=== PATIENT | female | born 2005 ===

== ENCOUNTER → 2024-08-18 | Outpatient (CLI) | payer BC ==
[2024-08-18 19:47] LABS: Protein, Urine Random 27.7 mg/dL (0.0-11.9); Protein/Creat Ratio, Ur Random 0.1
== END ==
LOC: LAB 14:15 → LAB SHORT 14:15
PROVIDERS: Obstetrics & Gynecology
DX: O14.90 Unspecified pre-eclampsia, unspecified trimester (principal)
CPT/HCPCS: 82570; 84156

== ENCOUNTER 2024-09-06 13:31 | Inpatient (IN) | payer BC ==
[2024-09-06] VITALS (11 sets, daily range): BP systolic 131–150; BP diastolic 64–89
[2024-09-06] MEDS ORDERED: Acetaminophen 500 MG Tab PO PRN (14:10)
[2024-09-06] MEDS ORDERED: Methylergonovine Maleate 0.2MG / ML 1ML Amp IM PRN ×2 (14:10→16:55)
[2024-09-06] MEDS ORDERED: ePHEDrine Sulfate 50 MG/ML 1ML Injection XX PRN (14:10)
[2024-09-06] MEDS ORDERED: Lactated Ringer's 1,000 ML IV PRN ×3 (14:10)
[2024-09-06] MEDS ORDERED: Carboprost Tromethamine 250 MCG/ML 1ML Amp IM PRN ×2 (14:10→17:00)
[2024-09-06] MEDS ORDERED: Ondansetron HCl 2 MG / ML 2ML Vial IV PRN (14:10)
[2024-09-06] MEDS ORDERED: FentaNYL 2mcg/ml-Bup 0.1% Epd 250 ML EPI PRN (14:10)
[2024-09-06] MEDS ORDERED: OXYTOCIN/RINGER'S LACTATE 500 ML IV PRN (14:10)
[2024-09-06] MEDS ORDERED: Calcium Carbonate 500 MG Tab Chew PO SCH (14:10)
[2024-09-06] MEDS ORDERED: Misoprostol 200 MCG Tab BC PRN ×2 (14:10→17:05)
[2024-09-06] MEDS ORDERED: Misoprostol 200 MCG Tab PR PRN ×2 (14:10→17:05)
[2024-09-06] MEDS ORDERED: Oxytocin 10 Unit / ML Vial IM PRN (14:10)
[2024-09-06] MEDS ORDERED: Tranexamic Acid 100 ML IV SCH (14:20)
[2024-09-06] MEDS ORDERED: PRENATAL TABLE1 EAC2 PO (14:51)
[2024-09-06 14:57] LABS: BASOPHILS ABSOLUTE AUTO 0.03 K/mm3 (0.00-0.23); BASOPHILS PERCENT AUTO 0 % (0-2); EOSINOPHILS ABSOLUTE AUTO 0.13 K/mm3 (0.00-0.68); EOSINOPHILS PERCENT AUTO 1 % (0-6); Hematocrit 33.4 % (33.0-51.0); IMMATURE GRAN ABSOLUTE AUTO 0.05 K/mm3 (0.00-0.10); IMMATURE GRAN PERCENT AUTO 1 % (0-1); LYMPHOCYTES ABSOLUTE AUTO 2.31 K/mm3 (0.84-5.20); LYMPHOCYTES PERCENT AUTO 24 % (21-46); MONOCYTES ABSOLUTE AUTO 0.71 K/mm3 (0.16-1.47); MONOCYTES PERCENT AUTO 7 % (4-13); Mean Corpuscular HGB 29.3 pg (26.0-34.0); Mean Corpuscular HGB Conc 32.9 g/dL (31.5-36.5); Mean Corpuscular Volume 89 fL (80-100); Mean Platelet Volume 10.5 fL (9.1-12.4); NEUTROPHILS ABSOLUTE AUTO 6.62 K/mm3 (1.96-9.15); NEUTROPHILS PERCENT AUTO 67 % (41-73); Platelet Count 205 K/mm3 (150-400); RDW Coefficient Variation 13.8 % (11.7-14.2); RDW Standard Deviation 44.5 fL (35.1-46.3); Red Blood Cell Count 3.76 M/mm3 (3.80-5.20); White Blood Cell Count 9.85 K/mm3 (4.00-11.30)
[2024-09-06] MEDS ORDERED: Acetaminophen 325 MG TABLET PO PRN (16:55)
[2024-09-06] MEDS ORDERED: Lactated Ringer's 1,000 ML IV SCH (17:00)
[2024-09-06] MEDS ORDERED: Witch Hazel/Glycerin PADS TOP PRN (17:00)
[2024-09-06] MEDS ORDERED: OxyCODONE 5 mg/Acetamin 325 mg TABLET PO PRN (17:00)
[2024-09-06] MEDS ORDERED: Ibuprofen 400 MG Tab PO PRN (17:00)
[2024-09-06] MEDS ORDERED: Misoprostol 100 MCG Tab PO PRN (17:00)
[2024-09-06] MEDS ORDERED: Benzocaine Topical Anesthetic Spray 60GM TOP PRN (17:05)
[2024-09-06] MEDS ORDERED: Docusate Sodium 100 MG Cap PO PRN (17:05)
[2024-09-06] MEDS ORDERED: Ketorolac Tromethamine 30mg Vial IV SCH (18:00)
[2024-09-07 00:08] VITALS: BP 115/57
[2024-09-07 05:45] LABS: BASOPHILS ABSOLUTE AUTO 0.02 K/mm3 (0.00-0.23); BASOPHILS PERCENT AUTO 0 % (0-2); EOSINOPHILS ABSOLUTE AUTO 0.11 K/mm3 (0.00-0.68); EOSINOPHILS PERCENT AUTO 1 % (0-6); Hematocrit 27.5 % (33.0-51.0); Hemoglobin 9.3 g/dL (11.5-16.0); IMMATURE GRAN ABSOLUTE AUTO 0.06 K/mm3 (0.00-0.10); IMMATURE GRAN PERCENT AUTO 1 % (0-1); LYMPHOCYTES PERCENT AUTO 16 % (21-46); MONOCYTES PERCENT AUTO 11 % (4-13); Mean Corpuscular HGB 29.7 pg (26.0-34.0); Mean Corpuscular HGB Conc 33.8 g/dL (31.5-36.5); Mean Corpuscular Volume 88 fL (80-100); Mean Platelet Volume 10.7 fL (9.1-12.4); NEUTROPHILS ABSOLUTE AUTO 6.92 K/mm3 (1.96-9.15); NEUTROPHILS PERCENT AUTO 71 % (41-73); Platelet Count 187 K/mm3 (150-400); RDW Coefficient Variation 14.1 % (11.7-14.2); RDW Standard Deviation 43.9 fL (35.1-46.3); Red Blood Cell Count 3.13 M/mm3 (3.80-5.20); White Blood Cell Count 9.81 K/mm3 (4.00-11.30)
[2024-09-07 07:07] VITALS: BP 124/82
[2024-09-07] MEDS ORDERED: Prenatal Vit/FE Fumarate/FA 1 Tab PO SCH (09:00)
[2024-09-07] MEDS ORDERED: Lanolin Cream TOP SCH (11:00)
[2024-09-07 12:43] VITALS: BP 128/64
[2024-09-07 16:30] VITALS: BP 123/67
--- NOTE | 2024-09-07 17:53 | NUR ---
PT D/C'D HOME WITH
== END 2024-09-07 17:49 | disposition home or self-care (01) | DRG 806 ==
LOC: OBS 13:31 → BC 13:32 → OBS 13:49 → BC 13:50
PROVIDERS: Family Medicine; ADMIT Obstetrics & Gynecology
PROC: 10E0XZZ Delivery of Products of Conception, External Approach (ICD-10-PCS; principal; 2024-09-06)
PROC: 0HQ9XZZ Repair Perineum Skin, External Approach (ICD-10-PCS; 2024-09-06)
DX: O42.02 Full-term premature rupture of membranes, onset of labor within 24 hours of rupture (principal); O47.1 False labor at or after 37 completed weeks of gestation; O62.3 Precipitate labor; O70.0 First degree perineal laceration during delivery; Z3A.39 39 weeks gestation of pregnancy; Z79.899 Other long term (current) drug therapy; Z37.0 Single live birth; Z98.890 Other specified postprocedural states
CPT/HCPCS: 36415; 59025; 81003; 85025; 86850; 86870; 86900; 86901; 99214; A9270; J1885; J2590